=== PATIENT | male | born 1955 | race Caucasian/White ===

== ENCOUNTER → 2019-07-23 | Outpatient (CLI) | payer OTHER ==
--- NOTE | 2019-07-23 15:11 | RADIOLOGY REPORT (SQ) ---
EXAM DESCRIPTION: CT LUNG CANCER SCREENING IMAGES COMPLETED DATE/TIME: 07/23/2019 2:40 pm REASON FOR STUDY: LDCT FOR SCREENING Z12.2 ENCNTR SCREEN FOR MALIGNANT NEOPLASM OF RESPIRATORY OR Has the patient had a Chest CT scan within the past year? N Was the patient offered tobacco cessation counseling? Y Was the patient engaged in shared decision making for this test? Y Does the patient have signs or symptoms of Lung Cancer? N Is the patient a smoker? Y How many pack years? 50Y How many years since quitting smoking? 0 Patients age: 64 COMPARISON: None. TECHNIQUE: Low Dose CT scan performed of the chest without intravenous contrast for purposes of scre ening for lung cancer. Images reviewed with lung, soft tissue and bone windows. Reconstructed coron al and sagittal MPR images reviewed. All images stored on PACS. All CT scanners at this facility use dose modulation, iterative reconstruction, and/or weight based d osing when appropriate to reduce radiation dose to as low as reasonably achievable (ALARA). [facility]: Dose Right [facility]: CareDose [facility]: Dose Right [facility]: Teradose 4D [facility]: Smart Lasso Logic RADIATION DOSE: CT Rad equipment meets quality standard of care and radiation dose reduction techniq ues were employed. CTDIvol: 2.1 mGy. DLP: 89 mGy-cm. mGy. . LIMITATIONS: None FINDINGS: LUNGS AND PLEURA: No masses or nodules. No pleural effusions or calcifications. No pne umothorax. Mild paraseptal emphysema upper lobes. HILAR AND MEDIASTINAL STRUCTURES: No identified masses. No abnormal nodes. HEART AND VASCULAR STRUCTURES: No aortic aneurysm. No pericardial effusion. No cardiac devices. CORONARY ARTERY CALCIFICATIONS: Mild to moderate calcifications. UPPER ABDOMEN, THYROID, BONES, OTHER SOFT TISSUES: No significant findings. IMPRESSION: NEGATIVE LUNG CANCER SCREENING. OTHER FINDINGS ABOVE. LUNGRADS: LUNGRADS: 1 NEGATIVE. NO NODULES, OR DEFINITELY BENIGN NODULES MODIFIER: NONE RECOMMENDATION: Continue annual screening with LDCT in 12 months. COMMENT: CRITERIA: No lung nodules. Nodules with specific calcifications: Complete, central, popcorn, concentric rings and fat containin g nodules. TECHNICAL DOCUMENTATION: JOB ID: [id number] Quality ID # [id number]: Final reports with documentation of one or more dose reduction techniques (e.g., Au tomated exposure control, adjustment of the mA and/or kV according to patient size, use of iterative reconstruction technique) 2010 [facility] Reading location - IP/workstation name: [email or web address]
== END ==
LOC: RAD 13:37
PROVIDERS: ATTEND Family Medicine
DX: Z12.2 Encounter for screening for malignant neoplasm of respiratory organs (principal); I25.10 Atherosclerotic heart disease of native coronary artery without angina pectoris; Z87.891 Personal history of nicotine dependence
CPT/HCPCS: G0297

== ENCOUNTER 2019-10-07 18:06 | Emergency (ER) | payer OTHER, MEDICARE ==
[~2019-10-07 18:06] MED LIST: ASPIRIN 81 MG TABLET, CHEWABLE PO ONE
--- NOTE | 2019-10-07 18:09 | ER Document Report ---
ED Medical Screen (RME) - General Chief Complaint: Chest Pain Stated Complaint: CHEST PAIN,ARM NUMBNESS Time Seen by Provider: 10/07/19 18:06 Primary Care Provider: ALBA EASLEY DO [Primary Care Provider] - Follow up as needed Information source: Patient Notes: Patient presents complaining of midsternal chest pain that radiates to the shoulders. Patient states that the pain started around 9 AM and then resolved and then returned at about 5 PM today. Patient states the pain is a pressure that he rates at a 4 out of 5. Patient reports nausea, dizziness and shortness of breath. Patient denies any vomiting. Patient states he has a history of CAD, ME, diabetes and hypertension. Patient does have stents. Patient has been off of all of his medications due to an [facility] with [facility]. I have greeted and performed a rapid initial assessment of this patient. A comprehensive ED assessment and evaluation of the patient, analysis of test results and completion of the medical decision making process will be conducted by additional ED providers. TRAVEL OUTSIDE OF THE [place] IN LAST 30 DAYS: No - Related Data Allergies/Adverse Reactions: No Known Allergies Allergy (Verified 10/07/19 18:07) Past Medical History - Past Medical History Cardiac Medical History: Reports: Hx Hypercholesterolemia, Hx Hypertension Endocrine Medical History: Reports: Hx Diabetes Mellitus Type 2 Psychiatric Medical History: Denies: Hx Depression - Immunizations Hx Diphtheria, Pertussis, Tetanus Vaccination: No Physical Exam - Respiratory Respiratory status: No respiratory distress Chest status: Tender - Cardiovascular Rhythm: Regular Heart sounds: S1 appreciated, S2 appreciated Doctor's Discharge - Discharge Referrals: ALBA EASLEY DO [Primary Care Provider] - Follow up as needed
[2019-10-07 18:34] LABS: ABSOLUTE BASOPHILS # (AUTO) 0.1 10^3/uL (0.0-0.2); ABSOLUTE EOSINOPHILS # (AUTO) 0.2 10^3/uL (0.0-0.6); ABSOLUTE LYMPHOCYTES (AUTO) 2.6 10^3/uL (0.5-4.7); ABSOLUTE MONOCYTES (AUTO) 0.9 10^3/uL (0.1-1.4); ABSOLUTE NEUT (AUTO) 6.4 10^3/uL (1.7-8.2); BASOPHILS % (AUTO) 0.5 % (0-2); EOSINOPHILS % (AUTO) 1.7 % (0-6); HEMOGLOBIN 17.5 g/dL (13.5-17.0); LYMPHOCYTES % (AUTO) 26.1 % (13-45); MEAN CORPUSCULAR HEMOGLOBIN 31.4 pg (27.0-33.4); MEAN CORPUSCULAR HGB CONC 34.9 g/dL (32.0-36.0); MEAN CORPUSCULAR VOLUME 90 fl (80-97); MONOCYTES % (AUTO) 8.8 % (3-13); PLATELET COUNT 216 10^3/uL (150-450); RED BLOOD COUNT 5.57 10^6/uL (4.35-5.55); RED CELL DISTRIBUTION WIDTH 13.2 % (11.5-14.0); SEGMENTED NEUTROPHILS % (AUTO) 62.9 % (42-78); TOTAL CELLS COUNTED % (AUTO) 100 %; WHITE BLOOD COUNT 10.1 10^3/uL (4.0-10.5)
[2019-10-07 18:40] LABS: INTERNATIONAL RATION (INR) 0.92; PROTHROMBIN TIME 12.4 SEC (11.4-15.4)
[2019-10-07 18:50] LABS: ALBUMIN 3.6 g/dL (3.5-5.0); ALKALINE PHOSPHATASE 137 U/L (38-126); ANION GAP 6 (5-19); ASPARTATE AMINO TRANSFERASE 20 U/L (17-59); BILIRUBIN,TOTAL 0.6 mg/dL (0.2-1.3); BLOOD UREA NITROGEN 9 mg/dL (7-20); CALCIUM 10.1 mg/dL (8.4-10.2); CARBON DIOXIDE 24 mmol/L (22-30); CHLORIDE 104 mmol/L (98-107); GLUCOSE 212 mg/dL (75-110); POTASSIUM 3.8 mmol/L (3.6-5.0); TOTAL PROTEIN 6.3 g/dL (6.3-8.2)
--- NOTE | 2019-10-07 18:58 | RADIOLOGY REPORT (SQ) ---
EXAM DESCRIPTION: CHEST SINGLE VIEW IMAGES COMPLETED DATE/TIME: 10/07/2019 6:28 pm REASON FOR STUDY: cp COMPARISON: AP Chest 06/20/2015 CT chest 07/23/2019 EXAM PARAMETERS: NUMBER OF VIEWS: One view. TECHNIQUE: Single frontal radiographic view of the chest acquired. RADIATION DOSE: NA LIMITATIONS: None. FINDINGS: LUNGS AND PLEURA: No opacities, masses or pneumothorax. No pleural effusion. MEDIASTINUM AND HILAR STRUCTURES: No masses. Contour normal. HEART AND VASCULAR STRUCTURES: Heart normal in size. Normal vasculature. BONES: No acute findings. HARDWARE: None in the chest. OTHER: No other significant finding. IMPRESSION: NO ACUTE RADIOGRAPHIC FINDING IN THE CHEST. TECHNICAL DOCUMENTATION: JOB ID: [id number] 2010 [employer]- All Rights Reserved Reading location - IP/workstation name: [id number]
[2019-10-07] MEDS ORDERED: FAMOTIDINE 20 MG TABLET PO ONE (19:28)
[2019-10-07] MEDS ORDERED: SUCRALFATE 1 GM TABLET PO ONE (19:28)
[2019-10-07] MEDS ORDERED: TICAGRELOR 90 MG TABLET PO ONE (19:33)
--- NOTE | 2019-10-07 19:34 | ER Document Report ---
ED Cardiac - General TRAVEL OUTSIDE OF THE [place] IN LAST 30 DAYS: No <NURIA GOLDEN - Last Filed: 10/07/19 21:00> <HARDEEP GUTIÉRREZ - Last Filed: 10/07/19 22:15> <AKTHIAFALLON - Last Filed: 10/07/19 22:34> - General Chief Complaint: Chest Pressure Stated Complaint: CHEST PAIN,ARM NUMBNESS Time Seen by Provider: 10/07/19 18:06 Primary Care Provider: ALBA EASLEY DO [Primary Care Provider] - Follow up as needed Notes: Patient is a 64-year-old male who presents the emergency department with a chief complaint of chest pain. Patient states that he started to have his chest pain this morning around 9:00 in the morning. States that he feels like he is having a heart attack. Patient states that he has been doing some yard work around the house. Denies any vomiting. Patient also has a history of GERD, but does not take his medication. Patient states that he has been out of his regular medication for the past 2 months. Patient has a history of an OR with stent placement in February 2019. Patient is supposed to be taking metoprolol, Brilin ta, atorvastatin, and losartan. (NURIA GOLDEN) - Related Data Allergies/Adverse Reactions: No Known Allergies Allergy (Verified 10/07/19 18:07) Past Medical History - General Information source: Patient - Social History Smoking Status: Smoker,Current Status Unk Family History: Reviewed & Not Pertinent Patient has homicidal ideation: No - Past Medical History Cardiac Medical History: Reports: Hx Hypercholesterolemia, Hx Hypertension Endocrine Medical History: Reports: Hx Diabetes Mellitus Type 2 Psychiatric Medical History: Denies: Hx Depression - Immunizations Hx Diphtheria, Pertussis, Tetanus Vaccination: No Hx Pneumococcal Vaccination: 12/17/14 <NURIA GOLDEN - Last Filed: 10/07/19 21:00> Review of Systems <NURIA GOLDEN - Last Filed: 10/07/19 21:00> - Review of Systems Notes: REVIEW OF SYSTEMS: CONSTITUTIONAL : Denies recent illness. Denies recent unintentional weight loss. Denies fever, chills, or sweats. EENT: Denies eye, ear, throat, or mouth pain, discharge, or symptoms. Denies nasal or sinus congestion. CARDIOVASCULAR: See HPI. RESPIRATORY: Denies shortness of breath, cough, congestion, difficulty breathing, or wheezing. GASTROINTESTINAL: See HPI. GENITOURINARY: Denies difficulty urinating, burning, blood in urine, urgency or frequency. MUSCULOSKELETAL: Denies neck and back pain. Denies joint pain or swelling. SKIN: Denies rash, itchiness, or lesions HEMATOLOGIC : Denies easy bruising or bleeding. LYMPHATIC: Denies swollen, painful, enlarged glands. NEUROLOGICAL: Denies no numbness or tingling denies weakness. Denies headache. Denies altered mental status. Denies alteration in speech. PSYCHIATRIC: Denies stress, anxiety, alteration in sleep patterns, or depression. All other systems reviewed and negative. (NURIA GOLDEN) Physical Exam <NURIA GOLDEN - Last Filed: 10/07/19 21:00> - Vital signs Vitals: Temp Pulse Resp BP Pulse Ox 98.6 F 69 16 141/87 H 97 10/07/19 18:13 10/07/19 18:13 10/07/19 18:13 10/07/19 18:13 10/07/19 18:13 - Notes Notes: PHYSICAL EXAMINATION: GENERAL: Appears well, healthy, well-nourished, no acute distress. HEAD: Normocephalic, atraumatic. EYES: PERRL, conjunctiva normal, all extraocular movements intact, sclera nonicteric ENT: Moist mucous membranes. NECK: Supple, no noticeable swelling, redness, rash. Normal range of motion. LUNGS: Equal breath sounds bilaterally and clear to auscultation. No wheezes rales or rhonchi. CARDIOVASCULAR: S1-S2, regular rate, regular rhythm. Radial pulses 2+, normal. ABDOMEN: Normoactive bowel sounds. Soft, nontender, no guarding, no rebound tenderness, and no masses palpated. EXTREMITIES: Normal strength and range of motion, no pitting or edema. No cyanosis. NEUROLOGICAL: Moves all extremities upon command. Strength 5/5 in all extremities. PSYCH: Normal mood, normal affect. SKIN: Warm, dry. No rash, lesions, ulcerations noted. Normal skin turgor. (NURIA GOLDEN) Course - Laboratory Result Diagrams: 10/07/19 18:21 10/07/19 18:21 <NURIA GOLDEN - Last Filed: 10/07/19 21:00> - Laboratory Result Diagrams: 10/07/19 18:21 10/07/19 18:21 <HARDEEP GUTIÉRREZ - Last Filed: 10/07/19 22:15> - Laboratory Result Diagrams: 10/07/19 18:21 10/07/19 18:21 <FALLON BAE - Last Filed: 10/07/19 22:34> - Re-evaluation Re-evalutation: 10/07/19 19:42 Chest x-ray is normal, hematology is unremarkable, other than a hemoglobin of 17.5. Coag studies are also unremarkable. Chemistries show a glucose of 212. Patient states that he is chest pain-free. Patient actually is asking for something to eat. 10/07/19 20:04 Called [facility] where the patient had his STEMI before. Will await callback, but they state that he will be over 24 hours before he can get a bed. 10/07/19 20:[address] Villasenor, the entry rep [employer] examiner. He states he would like the patient transferred to [facility]. 10/07/19 20:[address] Suh the hospitalist at [facility]. The patient will be placed on the wait list. Transfer center stated that the patient had an inferior STEMI. This is indicated on twelve-lead EKG. 10/07/19 20:35 Received a call from Dr. Araujo, he will check on the status of beds at [facility]. 10/07/19 20:59 Patient has a bed at [facility]. Dr. Gutiérrez, my attending made aware. (NURIA GOLDEN) 10/07/19 22:16 Pt seen at this time. Alert watching tv and pain free. Transport is here to take to [facility]. (HARDEEP GUTIÉRREZ) 10/07/19 22:33 I did reevaluate the patient at bedside, he denies chest pain, transport is here for patient go to [facility]. (FALLON BAE) - Vital Signs Vital signs: Temp Pulse Resp BP Pulse Ox 98.4 F 63 14 142/81 H 98 10/07/19 22:01 10/07/19 19:39 10/07/19 22:01 10/07/19 22:01 10/07/19 22:01 - Laboratory Laboratory results interpreted by me: 10/07/19 10/07/19 18:21 18:21 RBC 5.57 H Hgb 17.5 H Sodium 134.0 L Glucose 212 H Alkaline Phosphatase 137 H - EKG Interpretation by Me Additional EKG results interpreted by me: 10/07/19 Sinus rhythm. Rate 72. AK 176; QRS 82; QT 404; QTc 443. Old inferior infarct, consistent with patient's previous inferior STEMI. (NURIA GOLDEN) Discharge <NURIA GOLDEN - Last Filed: 10/07/19 21:00> <HARDEEP GUTIÉRREZ - Last Filed: 10/07/19 22:15> <FALLON BAE - Last Filed: 10/07/19 22:34> - Discharge Clinical Impression: NSTEMI (non-ST elevated myocardial infarction) Chest pain Qualifiers: Chest pain type: unspecified Qualified Code(s): R07.9 - Chest pain, unspecified Condition: Stable Disposition: [facility] Referrals: ALBA EASLEY DO [Primary Care Provider] - Follow up as needed
[2019-10-07] MEDS ORDERED: ENOXAPARIN SODIUM INJ 80 MG/0.8 ML DISP.SYRIN SUBCUT SCH (22:00)
[2019-10-07 22:27] VITALS: BP 142/81
--- NOTE | 2019-10-08 09:27 | EKG REPORT ---
SEVERITY:- ABNORMAL ECG - SINUS RHYTHM PROBABLE INFERIOR INFARCT, OLD : Confirmed by: Valentina Estrada 08-Oct-2019 09:25:41
== END 2019-10-07 22:47 | disposition short-term general hospital (02) ==
LOC: ER 18:06
DX: I21.4 Non-ST elevation (NSTEMI) myocardial infarction (principal); R07.9 Chest pain, unspecified; R20.0 Anesthesia of skin; K21.9 Gastro-esophageal reflux disease without esophagitis; Z79.899 Other long term (current) drug therapy; F17.200 Nicotine dependence, unspecified, uncomplicated; I10 Essential (primary) hypertension; I25.2 Old myocardial infarction; E11.9 Type 2 diabetes mellitus without complications
CPT/HCPCS: 93005; 99285; 96372; 36415; 83735; 85025; 85610; 85730; 80053; 84484; 71045; 93010; J1650; J3490